=== PATIENT | male | born 1955 | race Caucasian/White ===

== ENCOUNTER 2021-02-19 15:47 | Emergency (ER) | payer MEDICARE, SELFPAY ==
[2021-02-19 15:54] VITALS: BP 151/77; PULSE 94; RESP 20; O2SAT 98; BMI 34.4
[2021-02-19 17:30] VITALS: BP 151/77; PULSE 94; RESP 20; TEMP 36.8; O2SAT 98; BMI 34.3
--- NOTE | 2021-02-19 18:06 | HMH.EDUTC ---
[facility] Disposition Clinical Impression: History of gout Disposition: Home, Self-Care Condition on Discharge: Good Instructions: Gout (Alternative Therapy), Gout, DI for Gout Additional Instructions: Follow up with your Family Doctor if your symptoms do not improve Return if needed Straight to ER if any life threatening symptoms Take medication as prescribed Prescriptions: predniSONE [Deltasone 10mg tablet] 10 mg PO BID 3 Days #6 tab Transmission Status: Received by [id number] Referrals: Saul Auguste [Primary Care Provider] - As needed Time of Disposition: 18:35 Medical Decision Making - Reji Inquiry Pt receiving controlled substance: No Reji was queried for this patient: No Vital Signs: 02/19/21 15:54 02/19/21 17:30 Temperature 98.3 F Temperature Source Oral Pulse Rate [Left Radial] 94 H 94 H Respiratory Rate 20 20 Blood Pressure [Right Arm] 151/77 H 151/77 H Blood Pressure Mean [Right Arm] 101 101 Blood Pressure Source [Right Arm] Automatic Cuff Blood Pressure Position [Right Arm] Sitting 02 Sat by Pulse Oximetry 98 98 Oxygen Delivery Method Room Air Orders (Tests/Meds): ED MEDICATIONS Discontinued Medications Generic Name Dose Route Start Last Admin Trade Name Freq PRN Reason Stop Dose Admin Ketorolac Tromethamine 30 mg 02/19/21 18:28 02/19/21 18:40 Ketorolac 60mg/2ml Vial IM 02/19/21 18:29 30 mg ONCE ONE Administration Methylprednisolone Sodium Succinate 125 mg 02/19/21 18:27 02/19/21 18:40 Methylprednisolone Sod Succ 125mg Vial IM 02/19/21 18:28 125 mg ONCE ONE Administration Medical Decision Narrative: Patient declined uric acid lab draw, Medication discussed with pharmacy Patient advised that he has taken prednisone before without complications or reactions with his other medications [facility] HPI - General Stated complaint: Gout in left ankle Time Seen by Provider: 02/19/21 18:06 Mode of Arrival: Ambulatory Source of Information: Patient Limitations: No Limitations Description of Symptoms (Recalled from Triage Doc. by RN): PATIENT C/O SWELLING AND PAIN TO LEFT ANKLE X 3 DAYS HEENT Symptoms (Recalled from RN notes): No Resp Symptoms (Recalled from RN notes): No Skin Symptoms (Recalled from RN notes): No MS Symptoms (Recalled from RN notes): Yes Functional Status (Recalled from RN notes): WNL - History of Present Illness Provider Complaint: Patient states that he has a history of gout States that he has been having pain and swelling in his left ankle for about 3 days and thinks he may have gout attack and wanted to get the shots to fix it like he has had before - Related Data Home Medications Medication Instructions Recorded Confirmed allopurinoL [Allopurinol 100mg 100 mg PO DAILY 03/11/19 02/19/21 tablet] atenoloL [Atenolol 25mg Tab] 25 mg PO DAILY 03/11/19 02/19/21 lisinopriL [Lisinopril 20mg Tab] 10 mg PO DAILY 03/11/19 02/19/21 Previous Rx's Medication Instructions Recorded predniSONE [Deltasone 10mg tablet] 10 mg PO BID 3 Days #6 tab 02/19/21 Allergies Allergy/AdvReac Type Severity Reaction Status Date / Time No Known Drug Allergies Allergy Unknown Verified 03/19/19 10:03 [NKDA] - Worker's Comp Is this a Worker's Comp case?: No [facility] History - Hepatitis A Screen Drug use history?: No High risk sexual behaviors?: No History of sexually transmitted infection?: No Currently employed?: No Childcare worker?: No Do you have indoor plumbing?: Yes Do you have electricity?: Yes Attestation statement:: This patient has been screened for Hepatitis A risk factors. I have reviewed the patient's past medical history: Yes Medical History: Reports:: Cancer (prostate ca), Hypertension Denies:: Diabetes Mellitus Type 1, Diabetes Mellitus Type 2, Internal Pacemaker, MRSA, Seizures Comment: MARIS, Obesity Other Surgeries: No: Pacemaker Amputation: No Fractures: No Comment: TURP - Social History Smoki
[2021-02-19 18:40] VITALS: BP 151/77; PULSE 94; RESP 20; TEMP 36.8; O2SAT 98
== END 2021-02-19 18:45 | disposition home or self-care (01) ==
LOC: ER 15:56 → UTC 15:58
PROVIDERS: Emergency Provider Nurse Practitioner; PCP Family Medicine
DX: M10.072 Idiopathic gout, left ankle and foot (principal); I10 Essential (primary) hypertension; Z87.891 Personal history of nicotine dependence; Z85.46 Personal history of malignant neoplasm of prostate
CPT/HCPCS: G0463; 96372; 99202

== ENCOUNTER 2024-07-20 06:14 | Day surgery (SDC) | payer MEDICARE, SELFPAY ==
[2024-07-16 12:45] VITALS: BMI 34.4
[2024-07-20] MEDS: CYCLOPENTOLATE 2% OPHTH SOLN 2ML BOTTLE OP ×3 (07:01→07:02)
[2024-07-20] MEDS: TETRACAINE 0.5% OPTH SOL 15ML OP ×3 (07:01→07:02)
[2024-07-20] MEDS: PHENYLEPHRINE 2.5% OPHTH SOLN 2ML OP ×3 (07:01→07:02)
[2024-07-20 07:05] VITALS: BP 127/88; PULSE 65; RESP 18; TEMP 36.6; O2SAT 95
[2024-07-20 07:50] VITALS: BP 139/70; PULSE 64; RESP 16; TEMP 36.6; O2SAT 98
[2024-07-20] MEDS: MIDAZOLAM 2MG/2ML VIAL 1 MG IV (07:50)
[2024-07-20] MEDS: SODIUM CHLORIDE 0.9% 10ML FLUSH SYRINGE 10 ML IV (07:50)
[2024-07-20 07:55] VITALS: BP 136/71; PULSE 65; RESP 16; TEMP 36.6; O2SAT 98
[2024-07-20 08:00] VITALS: BP 127/72; PULSE 65; RESP 16; TEMP 36.6; O2SAT 99
[2024-07-20] MEDS: TIMOLOL 0.5% OPTH SOLN 5ML OP (08:03)
[2024-07-20] MEDS: TRI-MOXI 15MG/1MG/ML 1ML OPHTH VIAL 1 ML OP (08:04)
[2024-07-20] MEDS: LIDOCAINE 1% PF 2ML AMPULE 2 ML IJ (08:04)
[2024-07-20 08:05] VITALS: BP 122/71; PULSE 67; RESP 16; TEMP 36.6; O2SAT 98
[2024-07-20 08:14] VITALS: BP 125/71; PULSE 66; RESP 18; TEMP 36.6; O2SAT 98
--- NOTE | 2024-07-20 11:34 | P.PCN_ITS ---
[facility] Procedure Note Date: 07/20/24 Time: 11:34 Procedure Note:: Preoperative Diagnosis: Cataract combined NS Cortical Complex [Right] Eye Postop diagnosis: same Operation: Microscopic phacoemulsification with intraocular lens implant [Right] Eye Specimen: None Blood Loss: None The patient was examined in the office with a complaint of poor vision in the [right] eye. The patient reports that this interferes with ADLs such as reading, watching TV and/or driving or the vision is like looking through a foggy haze and is very troubling. The patient was examined and found to have a visually significant cataract with best corrected vision of [20/400] by refraction and/or glare testing. Treatment options, risks and benefits were explained and the patient elected to have cataract surgery in an attempt to improve their vision. The patient had the eye anesthetized with topical tetracaine, the eye ways prepped and draped in the usual fashion for cataract surgery. A paracentesis and a temporal keratotomy were made. 0.2cc of 1% lidocaine PF was placed into the anterior chamber. And aqueous/viscoelastic exchange was done and a 360 degree capsulorexis was performed. Through hydrodissection and delineation with BSS on a cannula was done. The lens nucleus was phecoemulsified with CDE of [8.60]. Residual cortical material was removed using automated I&A The capsular bag was deepened with viscoelastica and a PCIOL was placed in the capsular bag with good centration and stability. Residual viscoelastic was removed using automated I&A. The keratotomy incision was hydrated with BSS on a cannula. The wound were checked and found to be water tight. IOP was checked digitally and adjusted as needed so as not to be too high. 1 drop of timolol 0.5%, ofloxacin, prednisolone acetate and ketorolac was instilled and eye shield taped over the eye. The patient was taken to recovery in good condition and will be seen postoperatively.
== END 2024-07-20 08:19 | disposition home or self-care (01) ==
PROVIDERS: PCP Emergency Medicine; Visit Provider Ophthalmology
PROC: (CPT 66984; principal; 2024-07-20 07:30)
DX: H25.011 Cortical age-related cataract, right eye (principal)
CPT/HCPCS: 66984; J2250; V2632